=== PATIENT | female | born 1975 | race Caucasian/White ===

== ENCOUNTER 2017-02-26 10:43 | Day surgery (SDC) | payer BC ==
--- NOTE | 2017-02-26 11:30 | Operative Note ---
Upper GI Endoscopy Procedure date: 02/26/17 Date of : 71 Procedure:Upper GI Endoscopy Esophagogastrojejunoscopy with cold biopsies Indications: Mrs. Lombardo is a 42-year-old female with long-standing functional abdominal pain. 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 She had been followed by Dr. Vladimir Mendoza and had several ERCPs by himself and myself prior to that. The patient has had a pyloric sparing anastomosis with Lencho-en-Y anatomy. 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 She has had nausea and vomiting for a few months but this has increased. She developed RIGHT upper quadrant abdominal pain over the last weekend and called the physician assistant distribution manager and recommendations were to go to the emergency department. She has become a brittle diabetic and was placed on Plaquenil to reduce islet cell destruction. Her CAT scan did show moderate obstipation/incomplete defecation and she has been on the fiber bowel regimen. Performing Provider: Rosi Ryan MD Referring Provider: Billy Stark M.D. Sedation: Fentanyl 100 mg IV/Versed 7 mg IV Procedure: Prior to the procedure, a history and physical exam was performed, and patients medications and allergies were reviewed. The risks and benefits of the procedure and the sedation options and risks were discussed with the patient. All questions were answered and informed consent was obtained. The patient was brought to the procedure room. Patient identification and proposed procedure were verified by the physician and the nurse. The patient was placed in a left lateral decubitus position and the scope was passed under direct vision. Throughout the procedure, the patient's blood pressure, pulse, and oxygen saturations were monitored continuously. The endoscope was introduced through the mouth, and advanced to the second part of duodenum. The upper GI endoscopy was accomplished without difficulty. The patient tolerated the procedure well. Findings: The scope was passed directly into the upper esophagus and advanced to the bilateral limbs of the Lencho-en-Y jejunal bypass which were bifurcated just past the pylorus. Both limbs were normal in appearance with normal mucosa. The upper endoscope was then withdrawn through the pylorus into the stomach. There was mild pylorospasm. There was moderate bile reflux with linear erythema of the antrum and body of the stomach consistent with linear reactive gastritis. Upon retroflexion there was a very small sliding hiatal hernia. 2 biopsies were taken in the antrum and along the lesser curvature for histology. There were gastric fundic polyps in the fundus which were biopsied. The scope was then withdrawn into the esophagus. There was some evidence of mild esophageal dysmotility and nonerosive gastroesophageal reflux disease. The remainder of the esophageal mucosa was normal. Immediate complications: None EBL (ml): 0 Impression: 1. Pyloric sparing total pancreatectomy with Lencho anatomy beyond the pylorus and normal jejunal limbs 2. Moderate bile reflux with linear reactive gastritis and some pylorospasm 3. Nonerosive gastroesophageal reflux disease with mild esophageal dysmotility and very small sliding hiatal hernia Recommendations: The patient does have functional dyspepsia and functional gastroesophageal reflux disease with visceral sensitivity. I would continue BuSpar 20 mg by mouth twice a day. I may increase the fiber bowel regimen and add domperidone. I will proceed with diagnostic colonoscopy. at [id number]
--- NOTE | 2017-02-26 11:44 | Operative Note ---
Colonoscopy ([place]) Procedure date: 02/26/17 Date of : 71 Procedure:Colonoscopy Colonoscopy Indications: Mrs. Lombardo is a 42-year-old female with long-standing functional abdominal pain. 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 She had been followed by Dr. Vladimir Mendoza and had several ERCPs by himself and myself prior to that. The patient has had a pyloric sparing anastomosis with Lencho-en-Y anatomy. 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 She has had nausea and vomiting for a few months but this has increased. She developed RIGHT upper quadrant abdominal pain over the last weekend and called the physician twenty one dealer and recommendations were to go to the emergency department. She has become a brittle diabetic and was placed on Plaquenil to reduce islet cell destruction. Her CAT scan did show moderate obstipation/incomplete defecation and she has been on the fiber bowel regimen. She is here for diagnostic panendoscopy. Performing Provider: Rosi Ryan MD Referrring Provider: Billy Stark M.D. Sedation: Fentanyl 200 mg IV/Versed 9 mg IV (combined sedation for EGD/colonoscopy) Procedure: Prior to the procedure, a history and physical exam was performed, and patient medications and allergies were reviewed. The risks and benefits of the procedure and the sedation options and risks were discussed with the patient. All questions were answered and informed consent was obtained. Patient identification and proposed procedure were verified by the physician and the nurse. The patient was placed in a left lateral decubitus position. Throughout the procedure, the patient's blood pressure, pulse, and oxygen saturations were monitored continuously. Findings: On digital rectal examination there was normal rectal tone. There were no external hemorrhoids. The colonoscope was introduced through the anal canal to the rectum and advanced to the cecum. The ileocecal valve and appendiceal orifice were identified. The scope was advanced a short distance into the ileum which appeared grossly normal. The scope was then withdrawn into the colon. The cecum, ascending, transverse, descending, sigmoid and rectum were grossly normal. There was some increased luminal diameter and tortuosity/angulation at hepatic flexure suggestive of hepatic flexure syndrome and some colonic dysmotility. There were no mucosal abnormalities identified. Upon retroflexion within the rectum there were grade 1 internal hemorrhoids. Impressions: 1. Normal colonoscopy with intubation of the terminal ileum 2. 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 Grade 1 internal hemorrhoids Recommendations: I do feel that her right-sided abdominal pain may be secondary to hepatic flexure syndrome due to obstipation/incomplete defecation. I would continue the fiber bowel regimen and Buspar 20 mg by mouth twice a day. Complications: None EBL (ml): 0 at 1145
[2017-02-26 17:12] VITALS: BP 105/73
== END 2017-02-26 12:50 | disposition home or self-care (01) ==
LOC: SDC 10:43
PROVIDERS: Internal Medicine Gastroenterology
PROC: 0DB68ZX Excision of Stomach, Via Natural or Artificial Opening Endoscopic, Diagnostic (ICD-10-PCS; 2017-02-26)
PROC: 0DJD8ZZ Inspection of Lower Intestinal Tract, Via Natural or Artificial Opening Endoscopic (ICD-10-PCS; principal; 2017-02-26 11:30)
DX: R10.9 Unspecified abdominal pain (principal); E11.9 Type 2 diabetes mellitus without complications; Z98.84 Bariatric surgery status; Z98.0 Intestinal bypass and anastomosis status; K31.3 Pylorospasm, not elsewhere classified; K29.70 Gastritis, unspecified, without bleeding; K21.9 Gastro-esophageal reflux disease without esophagitis; K59.8 Other specified functional intestinal disorders; K64.0 First degree hemorrhoids; K59.00 Constipation, unspecified